=== PATIENT | female | born 1980 | race Asian ===

== ENCOUNTER 2017-01-26 04:10 | Inpatient (IN) | payer SELFPAY ==
[~2017-01-26] VITALS: Ht 160 cm; Wt 63.5 kg
[2017-01-26] MEDS: OXYTOCIN 20 UNITS in LACTATED RINGERS 1,000 ML IV SCH ×3 (02:40→10:06)
[~2017-01-26 04:10] MED LIST: IBUP-974 PO
[2017-01-26 04:25] VITALS: BP 142/91
[2017-01-26] MEDS ORDERED: METOCLOPRAMIDE 10 MG/2 ML INJ VIAL IVP ONE (04:35)
[2017-01-26] MEDS ORDERED: CITRIC ACID/SODIUM CITRATE 30 ML UDC PO ONE (04:35)
[2017-01-26] MEDS: LACTATED RINGERS 1,000 ML IV SCH ×2 (04:51→18:22)
[2017-01-26 05:00] LABS: BASOPHILS # (AUTO) 0.1 K/uL (0.00-0.22); BASOPHILS % (AUTO) 0.9 % (0.0-2.0); EOSINOPHILS # (AUTO) 0.1 K/uL (0-0.4); EOSINOPHILS % (AUTO) 0.8 % (0.0-4.0); HEMATOCRIT 34.2 % (36-48); HEMOGLOBIN 11.1 g/dL (12.0-16.0); LYMPHOCYTES # (AUTO) 1.8 K/uL (2.5-16.5); LYMPHOCYTES % (AUTO) 21.2 % (20.5-51.1); MEAN CORPUSCULAR HEMOGLOBIN 28 pg (27-31); MEAN CORPUSCULAR HGB CONC 33 g/dL (33-37); MEAN CORPUSCULAR VOLUME 85 fL (80-94); MONOCYTES # (AUTO) 0.5 K/uL (0.8-1.0); MONOCYTES % (AUTO) 5.5 % (1.7-9.3); NEUTROPHILS # (AUTO) 5.9 K/uL (1.8-7.7); NEUTROPHILS % (AUTO) 71.6 % (42.2-75.2); PLATELET COUNT (AUTO) 106 K/uL (140-450); RED BLOOD CELL COUNT(AUTO) 4.03 MIL/uL (4.20-5.40); WHITE BLOOD COUNT (AUTO) 8.4 K/uL (4.8-10.8)
[2017-01-26 05:09] LABS: ANION GAP 11.2 (8-16); CARBON DIOXIDE 22.7 mmol/L (21-32); CREATININE 0.6 mg/dL (0.6-1.3); POTASSIUM 3.9 mmol/L (3.5-5.1)
[2017-01-26 05:11] LABS: APPEARANCE,URINE CLEAR (CLEAR); BILIRUBIN,URINE NEGATIVE (NEGATIVE); BLOOD, URINE 2+ (NEGATIVE); COLOR,URINE YELLOW (YELLOW); LEUKOCYTE ESTERASE ,URINE NEGATIVE (NEGATIVE); NITRITE, URINE NEGATIVE (NEGATIVE); PH,URINE 7.5 (5.0-9.0); UGLUCOSE NEGATIVE (NEGATIVE)
[2017-01-26 05:16] LABS: ALBUMIN 2.5 g/dL (3.4-5.0); TOTAL BILIRUBIN 0.2 mg/dL (0.0-1.0)
[2017-01-26 05:20] LABS: RBC,URINE 20-50 /HPF (0-5); WBC,URINE 0-5 (RARE) /HPF (0-5)
[2017-01-26] MEDS ORDERED: PREN-546 PO (05:44)
[2017-01-26] MEDS ORDERED: CITRIC ACID/SODIUM CITRATE 30 ML UDC ONE (05:56)
[2017-01-26] MEDS ORDERED: ceFAZolin 1,000 MG VIAL ONE (05:56)
[2017-01-26] MEDS ORDERED: MIDAZOLAM 2 MG/2 ML VIAL ONE (06:12)
[2017-01-26] MEDS ORDERED: KETAMINE 500 MG/5 ML VIAL ONE (06:12)
[2017-01-26] MEDS ORDERED: fentaNYL 0.05 MG/ML VIAL ONE (06:12)
[2017-01-26] MEDS ORDERED: MORPHINE PRES FREE 10 MG/10 ML AMP IV ONE (06:13)
[2017-01-26] MEDS ORDERED: OXYTOCIN 10 UNITS/ML VIAL ONE (06:23)
[2017-01-26] MEDS ORDERED: TRIAMCINOLONE 40 MG/ML 5ML VIAL ONE (06:23)
[2017-01-26] MEDS ORDERED: METHYLERGONOVINE 0.2 MG/ML AMP ONE (06:24)
[2017-01-26] MEDS ORDERED: ONDANSETRON 4 MG/2 ML VIAL IVP PRN (06:50)
[2017-01-26] MEDS ORDERED: diphenhydrAMINE 50 MG/ML VIAL IVP PRN (06:50)
[2017-01-26] MEDS ORDERED: TEMAZEPAM 15 MG CAP PO PRN (07:00)
[2017-01-26] MEDS ORDERED: METHYLERGONOVINE 0.2 MG/ML AMP IM PRN (07:00)
[2017-01-26] MEDS ORDERED: SIMETHICONE 80 MG TAB.CHEW PO PRN (07:00)
[2017-01-26] MEDS ORDERED: MEASLES, MUMPS, AND RUBELLA 1 VIAL SQVAC PRN (07:00)
[2017-01-26] MEDS ORDERED: TRIMETHOBENZAMIDE 200 MG/2 ML SYR IM PRN (07:00)
[2017-01-26] MEDS ORDERED: KETOROLAC 30 MG/ML VIAL IVP PRN (07:50)
--- NOTE | 2017-01-26 09:09 | NUR ---
PATIENT HAS BEEN SCREENED AND CATEGORIZED LOW NUTRITION RISK. PATIENT WILL BE SEEN WITHIN 7 DAYS OF ADMISSION. 02/01/[address]
[2017-01-26 10:28] LABS: RAPID PLASMA REAGIN NON-REACTIVE (Non Reactiv)
[2017-01-26] MEDS ORDERED: SEVOFLURANE 250 ML BTL INH ONE (10:35)
[2017-01-26] MEDS ORDERED: KETOROLAC 30 MG/ML VIAL IVP ONE (10:35)
[2017-01-26] MEDS ORDERED: PROPOFOL 200 MG/20 ML VIAL IV ONE (10:35)
[2017-01-26] MEDS ORDERED: ONDANSETRON 4 MG/2 ML VIAL IVP ONE (10:35)
[2017-01-26] MEDS ORDERED: DEXAMETHASONE 4 MG/ML VIAL IVP ONE (10:35)
[2017-01-27] MEDS ORDERED: HYDROcodone/APAP 5/325 MG 1 TAB TAB PO PRN (01:00)
[2017-01-27] MEDS ORDERED: oxyCODONE/APAP 5/325 MG 1 TAB TAB PO PRN (01:00)
[2017-01-27] MEDS ORDERED: IBUPROFEN 800 MG TAB PO PRN (01:00)
[2017-01-27] MEDS ORDERED: OXYTOCIN 20 UNITS/LR PREMIX 1,000 ML IV ONE (02:44)
[2017-01-27 06:54] LABS: BASOPHILS % (AUTO) 0.1 % (0.0-2.0); EOSINOPHILS % (AUTO) 0.4 % (0.0-4.0); HEMATOCRIT 25.5 % (36-48); HEMOGLOBIN 8.3 g/dL (12.0-16.0); LYMPHOCYTES # (AUTO) 1.1 K/uL (2.5-16.5); LYMPHOCYTES % (AUTO) 11.9 % (20.5-51.1); MEAN CORPUSCULAR HEMOGLOBIN 28 pg (27-31); MEAN CORPUSCULAR HGB CONC 33 g/dL (33-37); MEAN CORPUSCULAR VOLUME 85 fL (80-94); MONOCYTES # (AUTO) 0.5 K/uL (0.8-1.0); MONOCYTES % (AUTO) 5.7 % (1.7-9.3); NEUTROPHILS # (AUTO) 7.7 K/uL (1.8-7.7); NEUTROPHILS % (AUTO) 81.9 % (42.2-75.2); PLATELET COUNT (AUTO) 120 K/uL (140-450); RED CELL DISTRIBUTION WIDTH 15.9 % (11.6-13.7); WHITE BLOOD COUNT (AUTO) 9.3 K/uL (4.8-10.8)
[2017-01-27] MEDS ORDERED: diphenhydrAMINE 50 MG/ML VIAL ONE (12:30)
[2017-01-27] MEDS ORDERED: MIDAZOLAM 2 MG/2 ML VIAL ONE (12:30)
[2017-01-27] MEDS ORDERED: fentaNYL 0.05 MG/ML VIAL ONE (12:32)
[2017-01-27] MEDS ORDERED: SODIUM PHOSPHATE 118 ML ENEM RC PRN (12:40)
[2017-01-27] MEDS: DOCUSATE SOD/SENNA 50/8.6 MG 1 TAB PO SCH (21:59)
[2017-01-28] MEDS: FERROUS SULFATE 325 MG TABEC PO SCH ×3 (09:50→19:11)
[2017-01-28] MEDS: DOCUSATE SOD/SENNA 50/8.6 MG 1 TAB PO SCH (21:00)
[2017-01-29] MEDS: FERROUS SULFATE 325 MG TABEC PO SCH (09:48)
== END 2017-01-29 11:20 | disposition home or self-care (01) | DRG 766 ==
LOC: MLD 04:10 → MFCC 08:10
PROVIDERS: ADMIT Obstetrics & Gynecology; ATTEND Obstetrics & Gynecology
PROC: 10D00Z1 Extraction of Products of Conception, Low, Open Approach (ICD-10-PCS; principal; 2017-01-26 06:00)
DX: O34.211 Maternal care for low transverse scar from previous cesarean delivery (principal); Z28.21 Immunization not carried out because of patient refusal; Z37.0 Single live birth; Z3A.38 38 weeks gestation of pregnancy
CPT/HCPCS: 36415; 51702; 80053; 81001; 85025; 86592; 86886; 86900; 86901; J0690; J1100; J1200; J1885; J2210; J2250; J2270; J2405; J2590; J2704; J3010; J3301; J7060; J7120